=== PATIENT | female | born 1960 | race Caucasian/White ===

== ENCOUNTER 2023-12-08 05:38 | Day surgery (SDC) | payer OTHER, SELFPAY ==
[2023-12-08 06:52] VITALS: BP 124/71; PULSE 80; RESP 18; TEMP 36.6; O2SAT 96; BMI 40.8
[2023-12-08] MEDS: Lactated Ringers 1,000 ML 15 ML IV (06:57)
[2023-12-08] MEDS: Cefazolin 2 GM in 0.9% Normal Saline (100mL Bag) 100 ML IV (07:30)
--- NOTE | 2023-12-08 07:37 | DCINST_ITS ---
Discharge Instructions Diet Discharge Diet: No restrictions Activity Discharge Activity: Return to Normal Activity May resume sexual activity in: 1 week Dressing / Incision Call your doctor if your incision/area has: Continuous Slow Oozing, Sudden Increased Bleeding and Foul Smelling Discharge Call your doctor if you observe: Fever of 101 or Higher, Inability to urinate and Inability to have a bowel movement Follow Up Care Please Follow Up With: Maria Pearson MD When: in 2-3 weeks in the office. Test Results: Test results from this visit will be discussed in further detail at your follow- up appointment, if applicable. Discharge Plan Admission Attending Provider: Maria Pearson Primary Care Provider: Mani Castaneda Discharge Orders/Prescriptions Prescriptions: New cephalexin [cephalexin] 500 mg capsule 500 mg PO Q12 3 Days Qty: 6 0RF Continued lisinopril 10 mg tablet 10 mg PO DAILY estradiol 0.01 % (0.1 mg/gram) cream 1 appful vaginal MOWEFR cholecalciferol (vitamin D3) [Vitamin D3] 25 mcg (1,000 unit) capsule 25 mcg PO DAILY magnesium gluconate 30 mg (550 mg) tablet 30 mg PO DAILY Referrals / Follow Up: Mani Castaneda MD [Primary Care Provider] - Disposition Disposition (needs filled in before D/C Order can be placed): Home, Self Care
--- NOTE | 2023-12-08 07:39 | PCM.OPRPT ---
Report of Operation Date of Procedure: 12/08/23 Pre-Operative Diagnosis: stricture female urethra Post-Operative Diagnosis: same Surgery/Procedure Performed:: urethral dilation, cystoscopy Surgeon: Maria Pearson Type of Anesthesia: MAC Description of Procedure: The patient is a 63-year-old female with a urethral stricture and slow stream presenting for dilation to a larger [place] today with cystoscopy. Informed consent was obtained. The patient was taken to the operating room and placed on the operating room table. Anesthesia monitored the head, neck, airway, IV access and vital signs throughout the case. Once anesthesia was appropriately administered, she was placed into dorsolithotomy position and was prepped and draped in usual sterile fashion. The urethra was dilated sequentially from [address] to 34 [place] with appropriate cracking of the mucosa. The cystoscope then was easily inserted through the urethra under direct visualization into the urinary bladder. There were no abnormalities identified. The bladder was emptied and the cystoscope was removed. The patient was awakened and taken to the recovery room in good condition. There were no complications during this procedure. Grafts/Implants Used: none Complications none Admit VTE Documentation VTE Present on Admission: Yes VTE Mechan Device Prophylaxis: SCD's VTE Pharm Prophylaxis ordered?: No Reason prophylaxis not ordered:: Treatment Not Indicated
[2023-12-08 07:55] VITALS: BP 120/79; BP 124/71; PULSE 92; RESP 20; TEMP 36.4; O2SAT 100
[2023-12-08 08:00] VITALS: BP 109/74; BP 124/71; PULSE 87; RESP 16; O2SAT 98
[2023-12-08 08:05] VITALS: BP 114/70; BP 124/71; PULSE 85; RESP 16; TEMP 36.6; O2SAT 98
[2023-12-08 08:33] VITALS: BP 124/71
== END 2023-12-08 08:39 | disposition home or self-care (01) ==
LOC: SDC 05:43 → AC 05:44
PROVIDERS: PCP Family Medicine; Referring Provider Urology; Visit Provider Urology
PROC: 0T7D8ZZ Dilation of Urethra, Via Natural or Artificial Opening Endoscopic (ICD-10-PCS; CPT 52281; principal; 2023-12-08 07:20)
DX: N35.92 Unspecified urethral stricture, female (principal); I10 Essential (primary) hypertension; Z79.899 Other long term (current) drug therapy; N39.41 Urge incontinence; N95.2 Postmenopausal atrophic vaginitis; R39.198 Other difficulties with micturition; R35.1 Nocturia
CPT/HCPCS: 52281; 00910; J7120; J2405